=== PATIENT | male | born 1980 | race Two or more races ===

== ENCOUNTER 2020-05-18 10:58 | Emergency (ER) | payer BC, OTHER ==
[~2020-05-18] VITALS: Ht 180.3 cm; Wt 80.7 kg
[2020-05-18 12:53] VITALS: BP 139/73
== END 2020-05-18 14:41 | disposition home or self-care (01) ==
LOC: ER 10:58
DX: N39.0 Urinary tract infection, site not specified (principal)
CPT/HCPCS: 76775